=== PATIENT | male | born 2000 | race Caucasian/White ===

== ENCOUNTER 2025-03-30 06:44 | Emergency (ER) | payer OTHER ==
[~2025-03-30] VITALS: Ht 182.9 cm; Wt 99.6 kg
[2025-03-30 08:14] LABS: LYMPH % 34.7 % (24.0-44.0); MONO % 11.3 % (2.0-8.0); NEUTROPHILS % 51.1 % (36.0-66.0); PLATELET COUNT, AUTOMATED 302 10^3/uL (150-450)
[2025-03-30] MEDS ORDERED: TELM1TAB33 PO (08:14)
[2025-03-30 08:15] LABS: BASO # 0.0 10^3/uL (0.0-0.2); BASO % 0.6 % (0.0-1.0); EOS # 0.1 10^3/uL (0.0-0.5); EOS % 2.1 % (0.0-3.0); LYMPH # 1.8 10^3/uL (1.5-5.0); MONO # 0.6 10^3/uL (0.0-0.8); NEUTROPHILS # 2.7 10^3/uL (1.5-8.5)
[2025-03-30 08:22] LABS: ERYTHROCYTE SEDIMENTATION RATE 2 mm/hr (0-15)
[2025-03-30 08:37] LABS: ALT/SGPT 63 U/L (7.0-40); AST/SGOT 31 U/L (<34); C REACTIVE PROTEIN QUANTITATIV < 0.50 MG/DL (<1.0); CALCIUM LEVEL 8.6 MG/DL (8.5-10.1); CARBON DIOXIDE LEVEL 28 MMOL/L (20-31); CHLORIDE LEVEL 104 MMOL/L (98-107); CREATININE FOR GFR 0.75 MG/DL (0.70-1.30); GLOMERULAR FILTRATION RATE > 90.0 (>60); POTASSIUM SERUM 3.9 MMOL/L (3.5-5.1); SODIUM LEVEL 137 MMOL/L (136-145)
[2025-03-30 08:40] LABS: FREE T4 1.58 NG/DL (0.89-1.76)
[2025-03-30] MEDS: ONDANSETRON 4MG 2ML VIAL IV ONE (08:47)
[2025-03-30] MEDS: KETOROLAC 30 MG/ML 1 ML VIAL IV ONE (08:49)
[2025-03-30 08:55] LABS: MONO REFLEX EBV COMP NEGATIVE (NEGATIVE)
[2025-03-30 09:30] VITALS: BP 132/77; O2SAT 100
[2025-03-30 09:48] VITALS: TEMP 97.6
[2025-04-03 14:50] LABS: EBV AB TO NUCLEAR ANTIGEN > 600.00 U/mL (<18.00); EBV VIRAL CAPSID AG IGG 132.00 U/mL (<18.00); EBV VIRAL CAPSID AG IGM < 36.00 U/mL (<36.00)
== END 2025-03-30 09:49 | disposition home or self-care (01) ==
LOC: M ED 06:44
DX: R19.7 Diarrhea, unspecified (principal); R53.83 Other fatigue; F17.200 Nicotine dependence, unspecified, uncomplicated; F10.10 Alcohol abuse, uncomplicated; Z79.899 Other long term (current) drug therapy
CPT/HCPCS: 71045; 80048; 80076; 84439; 84443; 85025; 85652; 86140; 86308; 86618; 86664; 86665; 87486; 87581; 87633; 87798; 93005; 96374; 96375; 99284; J1885; J2405

== ENCOUNTER 2025-04-17 23:21 | Emergency (ER) | payer OTHER ==
[~2025-04-17] VITALS: Ht 182.9 cm; Wt 99.4 kg
[~2025-04-17 23:21] MED LIST: TELM1TAB33 PO
[2025-04-17] MEDS ORDERED: REGL10TA6 PO (23:32)
[2025-04-17] MEDS ORDERED: ONDA-282 PO (23:32)
[2025-04-18 04:20] LABS: BASO # 0.0 10^3/uL (0.0-0.2); BASO % 0.4 % (0.0-1.0); EOS # 0.1 10^3/uL (0.0-0.5); EOS % 0.7 % (0.0-3.0); LYMPH # 2.2 10^3/uL (1.5-5.0); LYMPH % 30.4 % (24.0-44.0); MONO # 0.7 10^3/uL (0.0-0.8); MONO % 9.6 % (2.0-8.0); NEUTROPHILS # 4.2 10^3/uL (1.5-8.5); NEUTROPHILS % 58.6 % (36.0-66.0); PLATELET COUNT, AUTOMATED 273 10^3/uL (150-450)
[2025-04-18] MEDS: NS (Normal Saline) 0.9% 1,000 ML IV ONE (04:41)
[2025-04-18 04:57] LABS: ALT/SGPT 129 U/L (7.0-40); AST/SGOT 72 U/L (<34); CALCIUM LEVEL 8.9 MG/DL (8.5-10.1); CARBON DIOXIDE LEVEL 28 MMOL/L (20-31); CHLORIDE LEVEL 99 MMOL/L (98-107); CREATININE FOR GFR 0.77 MG/DL (0.70-1.30); GLOMERULAR FILTRATION RATE > 90.0 (>60); POTASSIUM SERUM 3.5 MMOL/L (3.5-5.1); SODIUM LEVEL 140 MMOL/L (136-145)
[2025-04-18] MEDS ORDERED: ISOVUE-370 76% 100 ML VIAL As Ordered ONE (08:26)
[2025-04-18 08:29] LABS: FREE T4 1.29 NG/DL (0.89-1.76)
[2025-04-18] MEDS: GASTROGRAFIN SOLUTION 30ML PO SCH (08:57)
[2025-04-18 09:22] LABS: APPEARANCE, URINE CLEAR (CLEAR); BACTERIA, URINE AUTO NEGATIVE (NEGATIVE); BILIRUBIN, URINE AUTO NEGATIVE (NEGATIVE); BLOOD, URINE BLOOD NEGATIVE (NEGATIVE); GLUCOSE, URINE (UA) AUTO NEGATIVE (NEGATIVE); KETONE, URINE AUTO NEGATIVE (NEGATIVE); LEUKOCYTE ESTERASE, URINE AUTO NEGATIVE (NEGATIVE); MUCUS, URINE SMALL (NEGATIVE); NITRITE, URINE AUTO NEGATIVE (NEGATIVE); PROTEIN, URINE AUTO 1+ mg/dL (NEGATIVE); RBC, URINE AUTO 0 /HPF (0-3); SPECIFIC GRAVITY URINE AUTO 1.027 (1.002-1.035); SQUAMOUS EPITHELIAL CELL UR AU 0 /HPF (0-6); UROBILINOGEN, URINE AUTO 4.0 mg/dL (0.0-2.0); WBC, URINE AUTO 0 /HPF (0-3)
[2025-04-18] MEDS ORDERED: HOME MED LIST COMPLETE! XX SCH (13:00)
[2025-04-18 13:42] VITALS: BP 131/70; TEMP 96.6; O2SAT 97
== END 2025-04-18 13:49 | disposition home or self-care (01) ==
LOC: M ED 23:21
DX: R19.7 Diarrhea, unspecified (principal); K76.0 Fatty (change of) liver, not elsewhere classified; I10 Essential (primary) hypertension; F10.10 Alcohol abuse, uncomplicated; Z79.899 Other long term (current) drug therapy
CPT/HCPCS: 74177; 80048; 80076; 81001; 83690; 84439; 84443; 85025; 87507; 93041; 96360; 96361; 99285; Q9963; Q9967